=== PATIENT | female | born 1955 | race Caucasian/White ===

== ENCOUNTER → 2019-12-26 | Outpatient (CLI) | payer BC, MEDICARE ==
[~2019-12-26] MED LIST: AMLO1TAB24; LISI10TA4
== END ==
LOC: M LABSMTC 10:11
PROVIDERS: ATTEND Anesthesiology
DX: Z01.812 Encounter for preprocedural laboratory examination (principal); Z20.828 Contact with and (suspected) exposure to other viral communicable diseases
CPT/HCPCS: C9803; U0003

== ENCOUNTER 2019-12-31 11:51 | Day surgery (SDC) | payer MEDICARE ==
[~2019-12-31] VITALS: Ht 165.1 cm; Wt 60.7 kg
[~2019-12-31 11:51] MED LIST changes: +NS 1,000 ML IV ONE
[2019-12-31] MEDS ORDERED: propofoL 200 MG/20 ML VIAL As Ordered ONE (13:45)
[2019-12-31] MEDS ORDERED: ePHEDrine SULFATE 25 MG/5 ML(5MG/ML) SYRINGE As Ordered ONE (13:45)
--- NOTE | 2019-12-31 14:09 | ROOR ---
Patient Name: Kay Mckoy Procedure Date: 12/31/2019 1:04 PM Date of : 1955 Age: 64 Room: [facility] Gender: Female Note Status: Finalized Procedure: Colonoscopy Indications: High risk colon cancer surveillance: Personal history of colonic polyps, Last colonoscopy: June 2014 Providers: Vega Rosas MD Referring MD: Alana Villalba NP Requesting Provider: Medicines: Monitored Anesthesia Care Complications: No immediate complications. Procedure: Pre-Anesthesia Assessment: - Prior to the procedure, a History and Physical was performed, and patient medications and allergies were reviewed. The patient is competent. The risks and benefits of the procedure and the sedation options and risks were discussed with the patient. All questions were answered and informed consent was obtained. Patient identification and proposed procedure were verified by the physician, the nurse and the supervisor cold rolling in the procedure room. Mental Status Examination: alert and oriented. Airway Examination: normal oropharyngeal airway and neck mobility. CV Examination: regular rate and rhythm. Prophylactic Antibiotics: The patient does not require prophylactic antibiotics. Prior Anticoagulants: The patient has taken no previous anticoagulant or antiplatelet agents. ASA Grade Assessment: II - A patient with mild systemic disease. After reviewing the risks and benefits, the patient was deemed in satisfactory condition to undergo the procedure. The anesthesia plan was to use monitored anesthesia care (MAC). Immediately prior to administration of medications, the patient was re-assessed for adequacy to receive sedatives. The heart rate, respiratory rate, oxygen saturations, blood pressure, adequacy of pulmonary ventilation, and response to care were monitored throughout the procedure. The physical status of the patient was re-assessed after the procedure. The Colonoscope was introduced through the anus and advanced to the cecum, identified by appendiceal orifice and ileocecal valve. The colonoscopy was somewhat difficult due to significant looping. Successful completion of the procedure was aided by applying abdominal pressure. The patient tolerated the procedure well. The quality of the bowel preparation was good. Findings: The perianal and digital rectal examinations were normal. A 30 mm polyp was found in the cecum. The polyp was carpet-like. Biopsies were taken with a cold forceps for histology. This was biopsied with a hot snare for histology. Polyp resection was incomplete due to the large size of the polyp and location. A 4 mm polyp was found in the rectum. The polyp was sessile. The polyp was removed with a jumbo cold forceps. Resection and retrieval were complete. Impression: - One 30 mm polyp in the cecum. Biopsied. - One 4 mm polyp in the rectum, removed with a jumbo cold forceps. Resected and retrieved. Recommendation: - Discharge patient to home. - Resume previous diet. - Continue present medications. - Await pathology results. - Return to endoscopist in 2 weeks. Vega Rosas MD Vega Rosas MD 12/31/2019 2:08:58 PM Electronically signed by Vega Rosas MD Number of Addenda: 0 Note Initiated On: 12/31/2019 1:04 PM Estimated Blood Loss: Estimated blood loss was minimal.
[2019-12-31 14:34] VITALS: BP 124/68
== END 2019-12-31 14:36 | disposition home or self-care (01) ==
LOC: M OPP 11:51
PROVIDERS: ATTEND Surgery
DX: Z12.11 Encounter for screening for malignant neoplasm of colon (principal); Z86.010 Personal history of colon polyps; Z80.0 Family history of malignant neoplasm of digestive organs; K62.1 Rectal polyp; K63.5 Polyp of colon; I10 Essential (primary) hypertension; F17.210 Nicotine dependence, cigarettes, uncomplicated; Z79.82 Long term (current) use of aspirin; Z79.899 Other long term (current) drug therapy; Z88.7 Allergy status to serum and vaccine

== ENCOUNTER → 2021-03-22 | Outpatient (CLI) | payer MEDICARE ==
[~2021-03-22] MED LIST changes: +AMLO1TAB25 PO; +LISI10TA22 PO; -LISI10TA4; +METO1TAB7 PO; -NS 1,000 ML IV ONE
== END ==
LOC: M LABSMTC 09:18
PROVIDERS: ATTEND Anesthesiology
DX: Z01.818 Encounter for other preprocedural examination (principal); Z11.52 Encounter for screening for COVID-19

== ENCOUNTER 2021-03-27 07:11 | Day surgery (SDC) | payer MEDICARE ==
[~2021-03-27] VITALS: Ht 165.1 cm; Wt 63.5 kg
[~2021-03-27 07:11] MED LIST changes: +NS 1,000 ML IV ONE
[2021-03-27] MEDS ORDERED: LIDOCAINE 2% 100MG/5ML SDV (FOR ANES.) As Ordered ONE (08:27)
[2021-03-27] MEDS ORDERED: propofoL 500 MG/50 ML VIAL As Ordered ONE ×2 (08:27→09:14)
[2021-03-27 09:49] VITALS: BP 106/74
== END 2021-03-27 09:51 | disposition home or self-care (01) ==
LOC: M OPP 07:11
PROVIDERS: ATTEND Surgery
DX: D12.0 Benign neoplasm of cecum (principal); D12.3 Benign neoplasm of transverse colon; K57.30 Diverticulosis of large intestine without perforation or abscess without bleeding; Z86.010 Personal history of colon polyps; Z09 Encounter for follow-up examination after completed treatment for conditions other than malignant neoplasm; Z80.0 Family history of malignant neoplasm of digestive organs; Z79.82 Long term (current) use of aspirin; Z79.899 Other long term (current) drug therapy; Z88.8 Allergy status to other drugs, medicaments and biological substances; F17.210 Nicotine dependence, cigarettes, uncomplicated

== ENCOUNTER → 2021-04-06 | Outpatient (CLI) | payer MEDICARE ==
[~2021-04-06] MED LIST changes: -NS 1,000 ML IV ONE
== END ==
LOC: M WHC 09:49
PROVIDERS: ATTEND Nurse Practitioner Adult Health
DX: Z12.31 Encounter for screening mammogram for malignant neoplasm of breast (principal)

== ENCOUNTER → 2021-09-20 | Outpatient (CLI) | payer MEDICARE | LOC: M WHC 09:29 | PROVIDERS: ATTEND Nurse Practitioner Adult Health | DX: M85.851 Other specified disorders of bone density and structure, right thigh (principal); M85.852 Other specified disorders of bone density and structure, left thigh ==

== ENCOUNTER → 2022-02-27 | Outpatient (CLI) | payer MEDICARE ==
[~2022-02-27] MED LIST changes: +ALEN70TA82 PO; +LEXA5TAB13 PO
== END ==
LOC: M LABSMTC 10:25
PROVIDERS: ATTEND Specialist
DX: Z01.818 Encounter for other preprocedural examination (principal); Z11.52 Encounter for screening for COVID-19

== ENCOUNTER 2022-03-04 11:14 | Day surgery (SDC) | payer MEDICARE ==
[~2022-03-04] VITALS: Ht 165.1 cm; Wt 62.6 kg
[~2022-03-04 11:14] MED LIST changes: +ACETAMINOPHEN 1000MG 100ML IV BAG As Ordered ONE; +BUPIVACAINE HCL 0.25% 10ML VIAL As Ordered ONE; +LIDOCAINE 2% 100MG/5ML SDV (FOR ANES.) As Ordered ONE; +MIDAZOLAM INJ 2MG/2ML VIAL As Ordered ONE; +ONDANSETRON 4MG 2ML VIAL As Ordered ONE; +ROCURONIUM BROMIDE 50MG/5ML VIAL As Ordered ONE; +SUGAMMADEX SODIUM 500 MG/5 ML VIAL (BRIDION) As Ordered ONE; +ceFAZolin SOD 2 GM in IV 1 EA IV ONE; +fentaNYL 250 MCG/5 ML INJECTION As Ordered ONE; +propofoL 200 MG/20 ML VIAL As Ordered ONE
[2022-03-04 11:42] LABS: HEMATOCRIT 47.7 % (36.0-47.0); HEMOGLOBIN 15.9 g/dl (12.0-15.5); MEAN CORPUSCULAR HEMOGLOBIN 32.1 pg (27.0-33.0); MEAN CORPUSCULAR HGB CONC 33.3 g/dl (32.0-36.5); MEAN CORPUSCULAR VOLUME 96.2 fl (80.0-96.0); PLATELET COUNT, AUTOMATED 210 10^3/uL (150-450); RED BLOOD COUNT 4.96 10^6/uL (4.00-5.40); WHITE BLOOD COUNT 11.1 10^3/uL (4.0-10.0)
[2022-03-04] MEDS ORDERED: LR 1,000 ML IV SCH ×3 (11:55→15:40)
[2022-03-04] MEDS ORDERED: HYDROmorphone HCL 2MG/ML 1ML VIAL As Ordered ONE (12:17)
[2022-03-04] MEDS ORDERED: OXYC1TAB23 PO (12:52)
[2022-03-04] MEDS ORDERED: IBUP-1022 PO (12:53)
[2022-03-04] MEDS ORDERED: LACRILUBE (AKWA TEARS) OPHTH OINT 3.5GM As Ordered ONE (13:47)
[2022-03-04] MEDS ORDERED: ePHEDrine SULFATE 25 MG/5 ML(5MG/ML) SYRINGE As Ordered ONE (14:01)
[2022-03-04] MEDS ORDERED: GLYCOPYRROLATE INJ 0.2 MG/ML 2 ML VIAL As Ordered ONE (14:32)
[2022-03-04] MEDS ORDERED: KETOROLAC 60MG 2ML VIAL As Ordered ONE (14:37)
[2022-03-04] MEDS ORDERED: SUGAMMADEX SODIUM 500 MG/5 ML VIAL (BRIDION) As Ordered ONE (14:37)
[2022-03-04] MEDS ORDERED: HYDROMORPHONE HCL 0.5 MG/ 0.5 ML SYRINGE IV PRN (15:05)
[2022-03-04] MEDS ORDERED: fentaNYL 100 MCG/2 ML INJECTION IV PRN (15:05)
[2022-03-04] MEDS ORDERED: oxyCODONE 5MG TAB PO PRN (15:05)
[2022-03-04] MEDS ORDERED: ONDANSETRON 4MG 2ML VIAL IV PRN (15:05)
[2022-03-04] MEDS ORDERED: PERCOCET 5MG/325MG TAB PO PRN (15:45)
[2022-03-04] MEDS ORDERED: ALBUTEROL SULFATE 2.5MG/0.5ML INH NEB SOLN INH ONE (15:55)
[2022-03-04 18:10] VITALS: BP 112/58
[2022-03-04] MEDS: KETOROLAC 30 MG/ML 1ML VIAL IV PRN (20:07)
[2022-03-04 21:57] VITALS: BP 102/59
[2022-03-05] MEDS: KETOROLAC 30 MG/ML 1ML VIAL IV PRN ×2 (01:45→07:57)
[2022-03-05 02:21] VITALS: BP 127/59
[2022-03-05 05:53] VITALS: BP 107/56
== END 2022-03-05 09:20 | disposition home or self-care (01) ==
LOC: M SDC 11:14 → M OBS 19:03 → M SDC 03-05 09:20
PROVIDERS: ATTEND Specialist
DX: D25.9 Leiomyoma of uterus, unspecified (principal); N84.0 Polyp of corpus uteri; D06.9 Carcinoma in situ of cervix, unspecified; N88.8 Other specified noninflammatory disorders of cervix uteri; I10 Essential (primary) hypertension; Z80.49 Family history of malignant neoplasm of other genital organs; Z72.0 Tobacco use; Z79.899 Other long term (current) drug therapy
CPT/HCPCS: 36415; 58571; 85027; 86850; 86900; 86901; 88307; 96374; 96376; J1100; J2405; S2900

== ENCOUNTER → 2022-04-17 | Outpatient (CLI) | payer MEDICARE ==
[~2022-04-17] MED LIST changes: -ACETAMINOPHEN 1000MG 100ML IV BAG As Ordered ONE; -BUPIVACAINE HCL 0.25% 10ML VIAL As Ordered ONE; +IBUP-1022 PO; -LIDOCAINE 2% 100MG/5ML SDV (FOR ANES.) As Ordered ONE; -MIDAZOLAM INJ 2MG/2ML VIAL As Ordered ONE; -ONDANSETRON 4MG 2ML VIAL As Ordered ONE; +OXYC1TAB23 PO; -ROCURONIUM BROMIDE 50MG/5ML VIAL As Ordered ONE; -SUGAMMADEX SODIUM 500 MG/5 ML VIAL (BRIDION) As Ordered ONE; -ceFAZolin SOD 2 GM in IV 1 EA IV ONE; -fentaNYL 250 MCG/5 ML INJECTION As Ordered ONE; -propofoL 200 MG/20 ML VIAL As Ordered ONE
== END ==
LOC: M WHC 09:30
PROVIDERS: ATTEND Specialist
DX: Z12.31 Encounter for screening mammogram for malignant neoplasm of breast (principal)

== ENCOUNTER → 2023-09-22 | Outpatient (CLI) | payer MEDICARE | LOC: M WHC 09:52 | PROVIDERS: ATTEND Nurse Practitioner Adult Health | DX: Z12.31 Encounter for screening mammogram for malignant neoplasm of breast (principal); M81.0 Age-related osteoporosis without current pathological fracture ==

== ENCOUNTER → 2023-11-10 | Outpatient (CLI) | payer MEDICARE | LOC: M RAD 13:24 | PROVIDERS: ATTEND Nurse Practitioner Adult Health | DX: F17.211 Nicotine dependence, cigarettes, in remission (principal) ==

== ENCOUNTER → 2024-10-26 | Outpatient (CLI) | payer MEDICARE ==
[~2024-10-26] MED LIST changes: -IBUP-1022 PO; +IBUP600T42 PO
== END ==
LOC: M WHC 11:55
PROVIDERS: ATTEND Nurse Practitioner Adult Health
DX: Z12.31 Encounter for screening mammogram for malignant neoplasm of breast (principal); R92.333 Mammographic heterogeneous density, bilateral breasts

== ENCOUNTER → 2024-10-27 | Outpatient (REF) | payer MEDICARE ==
[2024-10-27 19:40] LABS: PLATELET COUNT, AUTOMATED 168 10^3/uL (150-450)
[2024-10-27 19:50] LABS: IRON (FE) 213 UG/DL (50-170); PERCENT SATURATION 65.9 % (13.2-45.0)
[2024-10-27 19:53] LABS: VITAMIN B12 LEVEL 318 PG/ML (211-911)
[2024-10-27 20:02] LABS: ATYPICAL LYMPH 2 % (0-5); LYMPHOCYTES 22 % (16-44); MONOCYTES 4 % (0-5); NEUTROPHILS 71 % (28-66)
[2024-10-27 20:03] LABS: PLATELET ESTIMATE DECREASED (NORMAL)
[2024-10-27 20:31] LABS: HEPATITIS C VIRUS ABY INDEX < 0.02 INDEX (<0.8)
[2024-10-29 10:21] LABS: RBC FOLATE 362.0 NG/ML (280-791)
== END ==
LOC: M LAB REF 18:02
PROVIDERS: ATTEND Nurse Practitioner Adult Health
DX: D75.1 Secondary polycythemia (principal); R74.01 Elevation of levels of liver transaminase levels

== ENCOUNTER → 2024-11-09 | Outpatient (CLI) | payer MEDICARE | LOC: M RAD 14:00 | PROVIDERS: ATTEND Nurse Practitioner Adult Health | DX: F17.211 Nicotine dependence, cigarettes, in remission (principal) ==

== ENCOUNTER → 2024-11-17 | Outpatient (REF) | payer MEDICARE | LOC: M LAB REF 14:20 | PROVIDERS: ATTEND Nurse Practitioner Adult Health | DX: D75.1 Secondary polycythemia (principal) ==

== ENCOUNTER → 2025-01-20 | Outpatient (REF) | payer MEDICARE ==
[2025-01-20 17:49] LABS: IRON (FE) 194.0 UG/DL (50-170)
[2025-01-20 17:50] LABS: PERCENT SATURATION 72.1 % (13.2-45.0)
[2025-01-24 13:39] LABS: RBC FOLATE 362.0 NG/ML (280-791)
== END ==
LOC: M LAB REF 17:18
PROVIDERS: ATTEND Nurse Practitioner Adult Health
DX: D75.1 Secondary polycythemia (principal)

== ENCOUNTER → 2025-02-08 | Outpatient (CLI) | payer MEDICARE ==
[2025-02-08 11:20] LABS: ABG BASE EXCESS 2.0 (-2.0-2.0); ABG HCO3 26.8 MMOL/L (22.0-26.0); ABG O2 SATURATION 93.0 % (95.0-99.0); ABG PARTIAL PRESSURE CO2 42.2 mmHg (35.0-45.0); ABG PARTIAL PRESSURE O2 64.2 mmHg (75.0-100.0); ABG STANDARD HCO3 26.1 MMOL/L. (22.0-26.0); ABG TOTAL CO2 28.1 MMOL/L (23.0-31.0); ABG pH (ARTERIAL) 7.421 UNITS (7.350-7.450)
== END ==
LOC: M LAB 10:53
PROVIDERS: ATTEND Nurse Practitioner Adult Health
DX: D75.1 Secondary polycythemia (principal)

== ENCOUNTER → 2025-02-14 | Outpatient (CLI) | payer MEDICARE | LOC: M LAB 11:25 | PROVIDERS: ATTEND Nurse Practitioner Adult Health | DX: D75.1 Secondary polycythemia (principal) ==